=== PATIENT | male | born 1955 | race Two or more races ===

== ENCOUNTER 2021-11-11 15:08 | Emergency (ER) | payer OTHER ==
[~2021-11-11] VITALS: Ht 180.3 cm; Wt 76.7 kg
== END 2021-11-11 18:30 | disposition home or self-care (01) ==
LOC: ER 15:08
DX: L97.828 Non-pressure chronic ulcer of other part of left lower leg with other specified severity (principal); L03.116 Cellulitis of left lower limb; I10 Essential (primary) hypertension

== ENCOUNTER 2021-11-17 08:48 | Outpatient (CLI) | payer OTHER | END 2021-11-17 10:00 | disposition home or self-care (01) | LOC: WOUND MED 08:48 | PROVIDERS: ATTEND Specialist | DX: L97.522 Non-pressure chronic ulcer of other part of left foot with fat layer exposed (principal) ==

== ENCOUNTER 2021-11-21 13:19 | Outpatient (CLI) | payer OTHER | END 2021-11-21 13:20 | disposition home or self-care (01) | LOC: WOUND MED 13:19 | PROVIDERS: ATTEND Specialist | DX: L97.522 Non-pressure chronic ulcer of other part of left foot with fat layer exposed (principal) ==

== ENCOUNTER 2021-11-24 09:27 | Outpatient (CLI) | payer OTHER | END 2021-11-24 10:00 | disposition home or self-care (01) | LOC: WOUND MED 09:27 | PROVIDERS: ATTEND Specialist | DX: L97.522 Non-pressure chronic ulcer of other part of left foot with fat layer exposed (principal) ==

== ENCOUNTER 2021-11-27 20:09 | Emergency (ER) | payer OTHER ==
[~2021-11-27] VITALS: Ht 175.3 cm; Wt 68.0 kg
[2021-11-28] MEDS ORDERED: LEVALBUTER0.63 MG/3 IH (02:08)
[2021-11-28] MEDS ORDERED: BUDESONIDE0.5 MG/21 IH (02:08)
[2021-11-28] MEDS ORDERED: ACETAMINOPHEN650 M2 PO (02:08)
[2021-11-28] MEDS ORDERED: MOLNUPIRAVIR (200 MG PO (02:08)
[2021-11-28] MEDS ORDERED: VITAMIN C WIT1000 MG PO (02:08)
[2021-11-28] MEDS ORDERED: MUCINEX DM ER1 EACH PO (02:08)
== END 2021-11-28 02:19 | disposition home or self-care (01) ==
LOC: ER 20:09
DX: U07.1 COVID-19 (principal); I10 Essential (primary) hypertension

== ENCOUNTER 2021-11-30 08:50 | Outpatient (CLI) | payer OTHER ==
[~2021-11-30 08:50] MED LIST: ACETAMINOPHEN650 M2 PO; BUDESONIDE0.5 MG/21 IH; LEVALBUTER0.63 MG/3 IH; MOLNUPIRAVIR (200 MG PO; MUCINEX DM ER1 EACH PO; VITAMIN C WIT1000 MG PO
== END 2021-11-30 14:13 | disposition home or self-care (01) ==
LOC: WOUND MED 08:50
PROVIDERS: ATTEND Specialist
DX: L97.522 Non-pressure chronic ulcer of other part of left foot with fat layer exposed (principal)

== ENCOUNTER 2021-12-07 09:08 | Outpatient (CLI) | payer OTHER | END 2021-12-07 11:00 | disposition home or self-care (01) | LOC: WOUND MED 09:08 | PROVIDERS: ATTEND Specialist | DX: L97.522 Non-pressure chronic ulcer of other part of left foot with fat layer exposed (principal) ==

== ENCOUNTER 2021-12-14 08:25 | Outpatient (CLI) | payer OTHER | END 2021-12-14 10:00 | disposition home or self-care (01) | LOC: WOUND MED 08:25 | PROVIDERS: ATTEND Specialist | DX: L97.812 Non-pressure chronic ulcer of other part of right lower leg with fat layer exposed (principal) ==